=== PATIENT | female | born 1965 | race Caucasian/White ===

== ENCOUNTER 2016-06-09 08:53 | Emergency (ER) | payer MEDICARE | END 2016-06-09 09:40 | disposition home or self-care (01) | LOC: ER1 08:53 | DX: S20.469A Insect bite (nonvenomous) of unspecified back wall of thorax, initial encounter (principal); S30.861A Insect bite (nonvenomous) of abdominal wall, initial encounter; E11.9 Type 2 diabetes mellitus without complications; I10 Essential (primary) hypertension; W57.XXXA Bitten or stung by nonvenomous insect and other nonvenomous arthropods, initial encounter | CPT/HCPCS: 99281 ==

== ENCOUNTER → 2016-07-29 | Outpatient (CLI) | payer MEDICARE | LOC: HEART 5 07-25 09:00 | DX: R00.2 Palpitations (principal); R06.02 Shortness of breath; R94.39 Abnormal result of other cardiovascular function study | CPT/HCPCS: 93306 ==

== ENCOUNTER 2020-06-06 06:52 | Emergency (ER) | payer OTHER | END 2020-06-06 07:47 | disposition left against medical advice (07) | LOC: ER1 06:52 | DX: Z53.21 Procedure and treatment not carried out due to patient leaving prior to being seen by health care provider (principal) | CPT/HCPCS: 82962 ==